=== PATIENT | male | born 1975 | race Caucasian/White ===

== ENCOUNTER 2017-01-19 23:44 | Emergency (ER) | payer OTHER ==
[~2017-01-19] VITALS: Ht 162.6 cm; Wt 85.5 kg
[~2017-01-19 23:44] MED LIST: AMOXICILLIN500 MG PO; BACTRIM,SEPT1 TABLET PO; DECADRON4 MG PO; FLEXERIL10 MG PO; KEFLEX500 MG PO; LORCET 5-325 M1 EACH PO; MOTRIN600 MG PO; NAPROSYN500 MG PO; REMERON15 M2 PO; ULTRAM50 MG PO
[2017-01-20 00:08] LABS: ADD MIUA? YES; BILIRUBIN NEGATIVE; BLOOD LARGE; COLOR YELLOW ((YELLOW)); GLUCOSE (STRIP) NEGATIVE; KETONES NEGATIVE; LEUKOCYTES LARGE; NITRITE NEGATIVE; PROTEIN (STRIP) 100; SPECIFIC GRAVITY 1.018 (1.000-1.030); UROBILINOGEN 0.2 MG/DL (0.2-1.0)
[2017-01-20 00:20] LABS: BACTERIA 2+ /HPF; EPITHELIAL CELLS 1+ /HPF; MUCUS 1+ /LPF; RED BLOOD CELLS TNTC /HPF (0-5); WHITE BLOOD CELLS TNTC /HPF (0-5)
[2017-01-20 00:29] LABS: HEMATOCRIT 42.8 % (38.0-50.0); MCH 30.5 PG (29.0-34.0); MEAN PLAT.VOLUME 9.7 uM^3 (9.0-12.4); PLATELET COUNT 268 K/uL (156-360); RBC DIS.WIDTH-CV 12.4 % (11.8-14.6); RBC DIS.WIDTH-SD 39.6 % (39-53); RED BLOOD COUNT 4.92 M/uL (4.00-5.50); WHITE BLOOD COUNT 14.7 K/uL (4.1-10.2)
[2017-01-20 00:40] LABS: CHLORIDE 102 mEq/L (99-109); POTASSIUM 3.9 mEq/L (3.7-5.4); SODIUM 138 mEq/L (136-147)
[2017-01-20 00:42] LABS: GLUCOSE 142 mg/dL (70-99)
[2017-01-20 00:44] LABS: ANION GAP 17 MEQ/L (2-14)
[2017-01-20 00:46] LABS: GFR ESTIMATE (CALCULATED) > 59 mL/min/
[2017-01-20 00:47] LABS: UREA NITROGEN (BUN) 14 mg/dL (9-23)
[2017-01-20] MEDS ORDERED: CIPRO500 MG PO (01:50)
[2017-01-20 02:14] VITALS: BP 110/77
[2017-01-21 13:16] LABS: CHLAMYDIA TRACHOMATIS NEGATIVE; NEISSERIA GONORRHOEAE NEGATIVE
== END 2017-01-20 02:14 | disposition home or self-care (01) ==
LOC: EME 23:44
PROVIDERS: Physician Assistant
DX: N39.0 Urinary tract infection, site not specified (principal); R31.9 Hematuria, unspecified; K57.90 Diverticulosis of intestine, part unspecified, without perforation or abscess without bleeding; K76.0 Fatty (change of) liver, not elsewhere classified; I10 Essential (primary) hypertension
CPT/HCPCS: 74176; 80048; 81003; 85027; 87077; 87086; 87186; 87491; 87591; 99281; 99283; J0696